=== PATIENT | female | born 1945 | race Caucasian/White ===

== ENCOUNTER 2018-03-29 18:35 | Emergency (ER) | payer MEDICARE, BC ==
[2018-03-29] MEDS: Metoprolol Tartrate 5 MG/5 ML SDV IVPUSH ONE (18:54)
--- NOTE | 2018-03-29 19:00 | EDM.PDOC ---
ED HPI GENERAL MEDICAL PROBLEM - General Chief Complaint: Chest Pain Stated Complaint: [id number] CHEST PAINS Time Seen by Provider: 03/29/18 18:58 Source of Information: Reports: Patient History Limitations: Reports: No Limitations - History of Present Illness INITIAL COMMENTS - FREE TEXT/NARRATIVE: states takes metop for A fib missed 1 day dose started rapid heart 5pm thought it would go away like before but didn't and associated with CP when heart is racing. had A flut and had ablation and it turned into A fib. has appt with Dr Hernandez in 2 weeks. Middle Chest Pain Score (Numeric/FACES): 6 - Related Data Allergies Allergy/AdvReac Type Severity Reaction Status Date / Time No Known Allergies Allergy Verified 03/29/18 19:02 Home Meds: Home Meds DULoxetine [Cymbalta] 60 mg PO DAILY 03/29/18 [History] Doxepin [SINEquan] 25 mg PO DAILY 03/29/18 [History] Folic Acid 1 mg PO DAILY 03/29/18 [History] Methotrexate Sodium [Methotrexate] 20 mg PO WEEKLY 03/29/18 [History] Metoprolol Tartrate 25 mg PO DAILY 03/29/18 [History] Omeprazole 20 mg PO DAILY 03/29/18 [History] Topiramate 50 mg PO ASDIRECTED 03/29/18 [History] predniSONE [Prednisone] 15 mg PO DAILY 03/29/18 [History] ED ROS GENERAL - Review of Systems Review Of Systems: ROS reveals no pertinent complaints other than HPI. ED EXAM, GENERAL - Physical Exam Exam: See Below Exam Limited By: No Limitations General Appearance: Alert, WD/WN, Mild Distress, Other (palpitation) Ears: Hearing Grossly Normal Throat/Mouth: Normal Voice, No Airway Compromise Head: Atraumatic Neck: Non-Tender, Full Range of Motion Respiratory/Chest: No Respiratory Distress Cardiovascular: Tachycardia GI/Abdominal: Soft, Non-Tender Neurological: Alert, Oriented, Normal Cognition, Normal Gait, No Motor/Sensory Deficits Psychiatric: Normal Affect, Normal Mood Skin Exam: Warm, Dry, Normal Color Lymphatic: No Adenopathy Course - Vital Signs Last Recorded V/S: Last Vital Signs Temp 37.1 C 03/29/18 18:36 Pulse 201 H 03/29/18 18:54 Resp 20 03/29/18 18:36 BP 160/115 H 03/29/18 18:54 Pulse Ox 98 03/29/18 18:36 - Orders/Labs/Meds Orders: Active Orders 24 hr Category Date Time Status EKG 12 Lead [EKG Documentation Completion] [RC] STAT Care 03/29/18 18:50 Active Labs: Laboratory Tests 03/29/18 03/29/18 Range/Units 18:45 18:45 WBC 13.4 H (5.0-10.0) 10^3/uL RBC 4.30 (4.2-5.4) 10^6/uL Hgb 13.2 (12.0-16.0) g/dL Hct 41.2 (37.0-47.0) % MCV 95.8 (80-100) fL MCH 30.7 (27.0-34.0) pg MCHC 32.0 L (33.0-35.0) g/dL Plt Count 220 (150-450) 10^3/uL Neut % (Auto) 57.4 (42.2-75.2) % Lymph % (Auto) 32.4 (20.5-50.1) % [place] % (Auto) 9.3 H (2-8) % Eos % (Auto) 0.7 L (1.0-3.0) % Baso % (Auto) 0.2 (0.0-1.0) % Sodium 141 (135-145) mmol/L Potassium 3.6 (3.6-5.0) mmol/L Chloride 109 (101-111) mmol/L Carbon Dioxide 24.0 (21.0-31.0) mmol/L Anion Gap 11.6 BUN 10 (7-18) mg/dL Creatinine 0.8 (0.6-1.3) mg/dL Est Cr Clr Drug Dosing 54.89 mL/min Estimated GFR (MDRD) > 60 BUN/Creatinine Ratio 12.50 Glucose 117 H (74-105) mg/dL Calcium 9.3 (8.4-10.2) mg/dl Total Bilirubin 1.0 (0.2-1.0) mg/dL AST 29 (10-42) IU/L ALT 25 (10-60) IU/L Alkaline Phosphatase 52 (42-121) IU/L Troponin I 0.03 H* (0.00-0.02) ng/ml Total Protein 6.9 (6.7-8.2) g/dl Albumin 3.9 (3.2-5.5) g/dl Globulin 3.0 Albumin/Globulin Ratio 1.30 Meds: Medications Discontinued Medications Generic Name Dose Route Start Last Admin Trade Name Freq PRN Reason Stop Dose Admin Metoprolol Tartrate 2.5 mg 03/29/18 18:49 03/29/18 18:54 Lopressor IVPUSH 03/29/18 18:50 2.5 mg ONETIME ONE Administration - Re-Assessments/Exams Free Text/Narrative Re-Assessment/Exam: 03/29/18 19:15 re-exam; s/p IV metopro = much better now 03/29/18 19:[address] Ernst who kindly accepted pt Departure - Departure Time of Disposition: 19:42 Disposition: DC/Tfer to Acute Hospital 02 Reason for Transfer *Q: Other Condition: Good Clinical Impression: Atrial fibrillation with rapid ventricular response, Elevated troponin I level Forms: Interfacility Transfer EMTALA - My Orders Last 24 Hours: My Active Orders 03/29/18 18:50 EKG 12 Lead [EKG Documentation Completion] [RC] STAT - Assessment/Plan Last 24 Hours: My Active Orders 03/29/18 18:50 EKG 12 Lead [EKG Documentation Completion] [RC] STAT
[2018-03-29 19:14] LABS: CHLORIDE,CL 109 mmol/L (101-111); SODIUM,NA 141 mmol/L (135-145)
--- NOTE | 2018-04-02 12:47 | EKG ---
03/29/2018- GABBIE MARLOW - FINDINGS: EKG shows a heart rate of 216 beats per minute. It is a narrow complex tachycardia, very likely atrial fibrillation with rapid ventricular rate. [facility] /[id number]
== END 2018-03-29 20:08 ==
LOC: DL.ED 18:35
DX: I48.91 Unspecified atrial fibrillation (principal); R79.89 Other specified abnormal findings of blood chemistry; Z79.899 Other long term (current) drug therapy
CPT/HCPCS: 36415; 80053; 84484; 85025; 93005; 93010; 96374; 99285; J3490